=== PATIENT | female | born 1955 | race Caucasian/White ===

== ENCOUNTER → 2024-09-24 08:47 | Outpatient (BNVA) | payer MEDICARE, BC, SELFPAY | PROVIDERS: Visit Provider Psychiatry & Neurology Neurology | DX: R26.89 Other abnormalities of gait and mobility (principal); G20.A1 Parkinson's disease without dyskinesia, without mention of fluctuations; F03.90 Unspecified dementia, unspecified severity, without behavioral disturbance, psychotic disturbance, mood disturbance, and anxiety; R29.898 Other symptoms and signs involving the musculoskeletal system; E55.9 Vitamin D deficiency, unspecified; R29.6 Repeated falls; R41.0 Disorientation, unspecified; R41.3 Other amnesia; R48.2 Apraxia | CPT/HCPCS: 36415; 82306; 82542; 82607; 82746; 83520; 83735; 83921; 86592; 86617; 99203 ==

== ENCOUNTER 2024-10-04 13:02 | Outpatient (CLI) | payer MEDICARE, BC, SELFPAY ==
--- NOTE | 2024-10-04 13:45 | USCV_ITS ---
Michelle Lozoya Age: 69 Gender: F : 1955 Exam Date: 10/04/2024 13:10 Ordering Phys: Dwight Orellana MD Technologist: [email or web address] Exam Location: [facility] Indication: Memory Issues Risk Factors: Previous Vascular Surgery: Right Brachial BP: / Left Brachial BP: / Right Left Velocity (cm/s) Spectral Plaque Velocity (cm/s) Spectral Plaque Syst/Diast Broadening Syst/Diast Broadening 55.20/ 10.80 Prox CCA 43.50 / 8.50 55.20/ 8.80 Mid CCA 67.70 / 16.50 56.60/ 13.80 Distal CCA 66.50 / 11.00 54.00/ 11.40 Prox ICA 29.80 / 8.00 33.90/ 9.30 Mid ICA 53.00 / 13.60 63.20/ 13.10 Distal ICA 70.60 / 19.70 85.40 ECA 63.10 1.00 ICA/CCA 0.40 Antegrade Vertebral Antegrade 39.80/ 10.20 cm/s 51.10/ 12.40 cm/s Tri Subclavian Tri 69.30 54.80 CONCLUSIONS Right ICA stenosis <50%. Moderate atheromatous plaque right carotid bulb/ICA. Left ICA stenosis <50%. Moderate atheromatous plaque left carotid bulb/ICA. Normal antegrade Doppler flow noted in the right vertebral artery. Normal antegrade Doppler flow noted in the left vertebral artery. Jae Andrews MD (Electronically Signed) Final Date: 07 October 2024 10:06 S
== END 2024-10-04 13:03 | disposition home or self-care (01) ==
PROVIDERS: PCP Family Medicine; Visit Provider Psychiatry & Neurology Neurology
DX: G20.A1 Parkinson's disease without dyskinesia, without mention of fluctuations (principal); R26.89 Other abnormalities of gait and mobility; I65.23 Occlusion and stenosis of bilateral carotid arteries
CPT/HCPCS: 72158; 93880

== ENCOUNTER → 2025-01-01 14:57 | Outpatient (BNVA) | payer MEDICARE, BC, SELFPAY | PROVIDERS: Visit Provider Psychiatry & Neurology Neurology | DX: G20.A1 Parkinson's disease without dyskinesia, without mention of fluctuations (principal); R29.898 Other symptoms and signs involving the musculoskeletal system; E55.9 Vitamin D deficiency, unspecified; R41.3 Other amnesia; R41.0 Disorientation, unspecified; R29.6 Repeated falls; R48.2 Apraxia | CPT/HCPCS: 36415; 83520; 99212 ==

== ENCOUNTER → 2025-01-28 12:52 | Outpatient (BNVA) | payer MEDICARE, BC, SELFPAY | PROVIDERS: PCP Family Medicine; Referring Provider Psychiatry & Neurology Neurology; Visit Provider Psychiatry & Neurology Neurology | DX: R56.9 Unspecified convulsions (principal); G93.40 Encephalopathy, unspecified | CPT/HCPCS: 95816 ==